=== PATIENT | female | born 1950 | race Caucasian/White ===

== ENCOUNTER → 2016-09-26 | Outpatient (REF) | payer OTHER, MEDICARE ==
[2016-09-26 12:18] LABS: BASO % 0.4 % (0.0-1.0); EOS # 0.1 K/mm3 (0.0-0.50); EOS % 1.7 % (0.0-3.0); LARGE UNSTAINED CELL # 0.2 K/mm3 (0.0-0.4); LARGE UNSTAINED CELL % 2.6 % (0.0-4.0); LYMPH # 2.1 K/mm3 (1.5-4.5); LYMPH % 28.9 % (24.0-44.0); MEAN CORPUSCULAR HEMOGLOBIN 29.4 pg (27.0-33.0); MEAN CORPUSCULAR VOLUME 88.9 fl (80.0-96.0); MONO # 0.3 K/mm3 (0.0-0.8); MONO % 3.6 % (0.0-5.0); NEUTROPHILS # 4.6 K/mm3 (1.8-7.7); NEUTROPHILS % 62.7 % (36.0-66.0); PLATELET COUNT, AUTOMATED 231 k/mm3 (150-450); WHITE BLOOD COUNT 7.3 K/mm3 (4.0-10.0)
[2016-09-26 12:44] LABS: ALBUMIN 3.6 GM/DL (3.2-5.2); ALBUMIN/GLOBULIN RATIO 1.06 (1.00-1.93); ALKALINE PHOSPHATASE 80 U/L (45-117); ALT/SGPT 22 U/L (12-78); ANION GAP 9 MEQ/L (8-16); AST/SGOT 17 U/L (15-37); BILIRUBIN,TOTAL 1.2 MG/DL (0.2-1.0); BLOOD UREA NITROGEN 15 MG/DL (7-18); CALCIUM LEVEL 8.4 MG/DL (8.8-10.2); CARBON DIOXIDE LEVEL 28 MEQ/L (21-32); CHLORIDE LEVEL 106 MEQ/L (98-107); CHOLESTEROL LEVEL 208 MG/DL (<200); GLOMERULAR FILTRATION RATE > 60.0 (>45); GLUCOSE, FASTING 95 MG/DL (80-110); POTASSIUM SERUM 3.9 MEQ/L (3.5-5.1); SODIUM LEVEL 143 MEQ/L (136-145); TRIGLYCERIDES LEVEL 68 MG/DL (<150)
== END ==
LOC: M LABDRAW1 11:26
PROVIDERS: ATTEND Family Medicine
DX: Z00.01 Encounter for general adult medical examination with abnormal findings (principal); R03.0 Elevated blood-pressure reading, without diagnosis of hypertension

== ENCOUNTER → 2018-10-12 | Outpatient (REF) | payer OTHER ==
[2018-10-12 12:31] LABS: BASO # 0.1 10^3/uL (0.0-0.2); BASO % 0.9 % (0.0-1.0); EOS # 0.1 10^3/uL (0.0-0.50); HEMATOCRIT 42.1 % (36.0-47.0); HEMOGLOBIN 14.2 g/dl (12.0-15.5); LYMPH % 35.9 % (24.0-44.0); MEAN CORPUSCULAR HEMOGLOBIN 30.1 pg (27.0-33.0); MEAN CORPUSCULAR HGB CONC 33.7 g/dl (32.0-36.5); MEAN CORPUSCULAR VOLUME 89.4 fl (80.0-96.0); MONO # 0.3 10^3/uL (0.0-0.8); MONO % 5.2 % (0.0-5.0); NEUTROPHILS # 3.1 10^3/uL (1.8-7.7); NEUTROPHILS % 55.6 % (36.0-66.0); PLATELET COUNT, AUTOMATED 225 10^3/uL (150-450); RED BLOOD COUNT 4.71 10^6/uL (4.00-5.40); WHITE BLOOD COUNT 5.6 10^3/uL (4.0-10.0)
[2018-10-12 12:47] LABS: ALBUMIN 3.5 GM/DL (3.2-5.2); ALT/SGPT 24 U/L (12-78); BILIRUBIN,TOTAL 0.9 MG/DL (0.2-1.0); BLOOD UREA NITROGEN 17 MG/DL (7-18); CALCIUM LEVEL 8.4 MG/DL (8.8-10.2); CARBON DIOXIDE LEVEL 28 MEQ/L (21-32); CHLORIDE LEVEL 108 MEQ/L (98-107); CHOLESTEROL LEVEL 203 MG/DL (<200); CREATININE FOR GFR 0.67 MG/DL (0.55-1.30); GLOMERULAR FILTRATION RATE > 60.0 (>39); GLUCOSE, FASTING 101 MG/DL (70-100); HDL CHOLESTEROL 58 MG/DL (>40); LDL CHOLESTEROL 132 MG/DL (<100); NON-HDL-C 145 MG/DL; POTASSIUM SERUM 4.3 MEQ/L (3.5-5.1); SODIUM LEVEL 141 MEQ/L (136-145); TRIGLYCERIDES LEVEL 63 MG/DL (<150)
== END ==
LOC: M LABDRAW1 09:18
PROVIDERS: ATTEND Family Medicine
DX: R03.0 Elevated blood-pressure reading, without diagnosis of hypertension (principal)

== ENCOUNTER → 2019-10-14 | Outpatient (REF) | payer OTHER ==
[2019-10-14 13:55] LABS: BASO # 0.1 10^3/uL (0.0-0.2); BASO % 1.3 % (0.0-1.0); EOS # 0.3 10^3/uL (0.0-0.5); HEMATOCRIT 43.4 % (36.0-47.0); HEMOGLOBIN 14.4 g/dl (12.0-15.5); LYMPH # 1.5 10^3/uL (1.5-5.0); LYMPH % 27.9 % (24.0-44.0); MEAN CORPUSCULAR HEMOGLOBIN 30.1 pg (27.0-33.0); MEAN CORPUSCULAR HGB CONC 33.2 g/dl (32.0-36.5); MEAN CORPUSCULAR VOLUME 90.6 fl (80.0-96.0); MONO # 0.3 10^3/uL (0.0-0.8); MONO % 6.3 % (0.0-5.0); NEUTROPHILS # 3.2 10^3/uL (1.5-8.5); NEUTROPHILS % 59.3 % (36.0-66.0); PLATELET COUNT, AUTOMATED 228 10^3/uL (150-450); RED BLOOD COUNT 4.79 10^6/uL (4.00-5.40); WHITE BLOOD COUNT 5.4 10^3/uL (4.0-10.0)
[2019-10-14 14:29] LABS: ALBUMIN 3.6 GM/DL (3.2-5.2); ALT/SGPT 23 U/L (12-78); BILIRUBIN,TOTAL 1.5 MG/DL (0.2-1.0); BLOOD UREA NITROGEN 18 MG/DL (7-18); CARBON DIOXIDE LEVEL 29 MEQ/L (21-32); CHLORIDE LEVEL 108 MEQ/L (98-107); CHOLESTEROL LEVEL 229 MG/DL (<200); CREATININE FOR GFR 0.72 MG/DL (0.55-1.30); GLOMERULAR FILTRATION RATE > 60.0 (>39); GLUCOSE, FASTING 117 MG/DL (70-100); HDL CHOLESTEROL 54 MG/DL (>40); LDL CHOLESTEROL 160 MG/DL (<100); NON-HDL-C 175 MG/DL; POTASSIUM SERUM 3.8 MEQ/L (3.5-5.1); SODIUM LEVEL 140 MEQ/L (136-145); TOTAL PROTEIN 7.1 GM/DL (6.4-8.2); TRIGLYCERIDES LEVEL 73 MG/DL (<150)
== END ==
LOC: M LABDRAW1 12:47
PROVIDERS: ATTEND Family Medicine
DX: R03.0 Elevated blood-pressure reading, without diagnosis of hypertension (principal)

== ENCOUNTER → 2019-11-22 | Outpatient (REF) | payer OTHER ==
[2019-11-22 10:52] LABS: BILIRUBIN,DIRECT 0.2 MG/DL (0.0-0.2)
[2019-11-22 10:53] LABS: ALBUMIN 3.4 GM/DL (3.2-5.2); CHOLESTEROL RISK RATIO 2.91 (<5)
== END ==
LOC: M LABDRAW1 07:42
PROVIDERS: ATTEND Family Medicine
DX: E78.2 Mixed hyperlipidemia (principal)

== ENCOUNTER → 2022-11-04 | Outpatient (CLI) | payer OTHER, MEDICARE | LOC: M LABSMTC 11:02 | PROVIDERS: ATTEND Anesthesiology | DX: Z01.812 Encounter for preprocedural laboratory examination (principal); Z20.822 Contact with and (suspected) exposure to COVID-19 ==

== ENCOUNTER 2022-11-08 10:03 | Day surgery (SDC) | payer OTHER, MEDICARE ==
[~2022-11-08] VITALS: Ht 162.6 cm; Wt 73.0 kg
[~2022-11-08 10:03] MED LIST: ceFAZolin SOD 2 GM in IV 1 EA IV ONE
[2022-11-08] MEDS ORDERED: VITA200012 PO (10:56)
[2022-11-08] MEDS ORDERED: ATOR1TAB19 PO (10:56)
[2022-11-08] MEDS ORDERED: BUPIVACAINE HCL 0.5% 30ML VIAL As Ordered ONE (11:41)
[2022-11-08] MEDS ORDERED: LIDOCAINE 2% MDV 20ML VIAL As Ordered ONE (11:41)
[2022-11-08] MEDS ORDERED: GENTAMICIN SULF 80MG/2ML VIAL As Ordered ONE (11:41)
[2022-11-08] MEDS ORDERED: LIDOCAINE 2% 100MG/5ML SDV (FOR ANES.) As Ordered ONE (12:37)
[2022-11-08] MEDS ORDERED: fentaNYL 100 MCG/2 ML INJECTION As Ordered ONE (12:37)
[2022-11-08] MEDS ORDERED: ONDANSETRON 4MG 2ML VIAL As Ordered ONE (12:37)
[2022-11-08] MEDS ORDERED: propofoL 200 MG/20 ML VIAL As Ordered ONE (12:37)
[2022-11-08] MEDS ORDERED: MIDAZOLAM INJ 2MG/2ML VIAL As Ordered ONE (12:38)
[2022-11-08] MEDS ORDERED: METOCLOPRAMIDE INJ 10MG/2ML VIAL As Ordered ONE (13:14)
[2022-11-08] MEDS ORDERED: diphenhydrAMINE 50MG/ML VIAL As Ordered ONE (13:16)
[2022-11-08] MEDS ORDERED: ACETAMINOPHEN 1000MG 100ML IV BAG As Ordered ONE (13:57)
[2022-11-08 15:45] VITALS: BP 148/73
== END 2022-11-08 15:50 | disposition home or self-care (01) ==
LOC: M SDC 10:03
PROVIDERS: ATTEND Podiatrist
DX: M20.12 Hallux valgus (acquired), left foot (principal)
CPT/HCPCS: 28292; 73630; 76000; 88300; 97116; C1713; J0131; J0690; J1100; J1200; J1580; J2250; J2405; J2765; J3010; S0020